=== PATIENT | female | born 1995 | race Caucasian/White ===

== ENCOUNTER 2019-03-25 00:15 | Emergency (ER) | payer OTHER | END 2019-03-25 01:15 | disposition other institution (70) | LOC: ED 00:15 | DX: Z02.89 Encounter for other administrative examinations (principal) ==

== ENCOUNTER 2019-03-25 00:15 | Emergency (ER) | payer SELFPAY ==
[~2019-03-25] VITALS: Ht 180.3 cm; Wt 113.6 kg
[2019-03-25 00:23] VITALS: Ht 180.3 cm; Wt 113.6 kg
[2019-03-25 00:44] VITALS: BP 145/90
== END 2019-03-25 01:15 | disposition other institution (70) ==
LOC: ED 00:15
DX: F10.129 Alcohol abuse with intoxication, unspecified (principal); V48.5XXA Car driver injured in noncollision transport accident in traffic accident, initial encounter; Y93.89 Activity, other specified; Y92.89 Other specified places as the place of occurrence of the external cause; Y99.8 Other external cause status; Y90.9 Presence of alcohol in blood, level not specified
CPT/HCPCS: Q0162